=== PATIENT | female | born 1955 | race Caucasian/White ===

== ENCOUNTER 2024-04-15 17:19 | Outpatient (REF) | payer OTHER, SELFPAY ==
[2024-04-15 16:10] LABS: Anion Gap 9.2 mmol/L (3-11); BUN 13 mg/dL (7-18); CO2 34.8 mmol/L (21.0-32.0); CREATININE 1.2 mg/dL (0.55-1.02); Calcium 8.8 mg/dL (8.5-10.1); Chloride 98 mmol/L (98-107); Estimated GFR 49.31 (mL/min/1.73m2); Glucose 164 mg/dL (74-106); Potassium 3.6 mmol/L (3.5-5.1); Sodium 142 mmol/L (136-145)
== END 2024-04-15 17:20 | disposition home or self-care (01) ==
LOC: LBN 17:19
PROVIDERS: PCP Family Medicine; Visit Provider Family Medicine
DX: I50.9 Heart failure, unspecified (principal); K74.60 Unspecified cirrhosis of liver
CPT/HCPCS: 80048